=== PATIENT | female | born 1990 | race Caucasian/White ===

== ENCOUNTER 2020-12-30 09:07 | Inpatient (IN) | payer BC ==
[2020-12-30] MEDS ORDERED: Citric Acid/Sodium Citrate Solution 30 ML Cup PO ONE (09:09)
[2020-12-30] MEDS ORDERED: Metoclopramide 10 MG/2 ML SDV IVPUSH ONE (09:09)
[2020-12-30] MEDS ORDERED: Sodium Chloride 0.9% 10 ML Syringe FLUSH PRN (09:09)
[2020-12-30] MEDS ORDERED: Oxytocin/Lactated Ringers 10 UNIT/1,000 ML BAG IV SCH (09:15)
[2020-12-30] MEDS ORDERED: Lactated Ringers 1,000 ML IV SCH (09:15)
[2020-12-30] MEDS ORDERED: ceFAZolin 2 GM in Premix Bag 1 BAG IV ONE (09:30)
--- NOTE | 2020-12-30 09:31 | PCM.LDHP ---
L&D History of Present Illness - General Date of Service: 12/30/20 Admit Problem/Dx: Patient Status Order with Admit Dx/Problem 12/30/20 09:09 Patient Status [ADT] Routine Admission Diagnosis/Problem Admission Diagnosis/Problem Rupture of membranes with clear amniotic fluid Source of Information: Patient History Limitations: Reports: No Limitations - History of Present Illness Introduction:: Patient is a 30 y/o at 38 6/7 wks who presents for concerns of SROM. Occurred about 1.5 hours prior to presentation. Mild contractions since then. 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 (Approximate): - Past Surgical History HEENT Surgical History: Reports: Other (See Below) (Septoplasty) Social & Family History - Tobacco Use Tobacco Use Status *Q: Never Tobacco User - Alcohol Use Alcohol Use History: No - Recreational Drug Use Recreational Drug Use: No H&P Review of Systems - Review of Systems: Review Of Systems: See Below General: Reports: No Symptoms Pulmonary: Reports: No Symptoms Cardiovascular: Reports: No Symptoms Gastrointestinal: Reports: No Symptoms Genitourinary: Reports: No Symptoms Musculoskeletal: Reports: No Symptoms Psychiatric: Reports: No Symptoms Neurological: Reports: No Symptoms L&D Exam - Exam Exam: See Below - OB Specific Contraction Intensity: Irritability Movement: Active Heart Tones: Present Heart Tones per Min: 145 Heart Rate (FHR) Variability: Moderate (6-25 bmp) Presentation: Breech - Exam General: Alert, Oriented, Cooperative Lungs: Clear to Auscultation, Normal Respiratory Effort Cardiovascular: Regular Rate, Regular Rhythm GI/Abdominal Exam: Soft, Non-Tender Genitourinary: Other (grossly ruptured ) Extremities: Normal Inspection Skin: Warm, Dry, Intact - Problem List (1) 38 weeks gestation of SNOMED Code(s): 42017390 ICD Code: Z3A.38 - 38 WEEKS GESTATION OF Status: Acute Current Visit: Yes (2) Breech presentation SNOMED Code(s): 5529229 ICD Code: O32.1XX0 - MATERNAL CARE FOR BREECH PRESENTATION, UNSP Status: Acute Current Visit: Yes Qualifiers: Fetus number: fetus 1 of multiple gestation Qualified Code(s): O32.1XX1 - Maternal care for breech presentation, fetus 1 (3) Spontaneous rupture of membranes SNOMED Code(s): 441490111 ICD Code: QNX7052 - Status: Acute Current Visit: Yes Problem List Initiated/Reviewed/Updated: Yes Orders Last 24hrs: Active Orders 24 hr Category Date Time Status Patient Status [ADT] Routine ADT 12/30/20 09:09 Active Communication Order [RC] ROUTINE Care 12/30/20 09:09 Active Heart Tones [RC] PER UNIT ROUTINE Care 12/30/20 09:09 Active Non Stress Test [RC] PER UNIT ROUTINE Care 12/30/20 09:09 Active Peripheral IV Care [RC] . DIRECTED Care 12/30/20 09:10 Active Procedure Site Prep Instruct [RC] ASDIRECTED Care 12/30/20 09:09 Active Verify Patient Consent Obtain [RC] PER UNIT ROUTINE Care 12/30/20 09:09 Active Vital Signs [RC] PFP Care 12/30/20 09:09 Active CBC W/O DIFF,HEMOGRAM [HEME] Stat Lab 12/30/20 09:09 Ordered CORONAVIRUS COVID-19 ALBINO [MOLEC] Stat Lab 12/30/20 09:20 Received HEP C VIRUS AB [REF] Stat Lab 12/30/20 09:09 Ordered RAPID PLASMA REAGIN,RPR [CHEM] Routine Lab 12/30/20 09:09 Ordered TYPE AND SCREEN [BBK] Routine Lab 12/30/20 09:09 Ordered Azithromycin [Zithromax] 500 mg Med 12/30/20 09:09 Pending Sodium Chloride 0.9% [Normal Saline (AdvBag)] 250 ml IV ONETIME Citric Acid/Sodium Citrate [Bicitra Solution] Med 12/30/20 09:09 Once 30 ml PO ONETIME ONE Lactated Ringers [Ringers, Lactated] 1,000 ml Med 12/30/20 09:15 Pending IV ASDIRECTED Metoclopramide [Reglan] Med 12/30/20 09:09 Once 10 mg IVPUSH ONETIME ONE Oxytocin/Lactated Ringers [Pitocin in LR 10 Units/1,000 Med 12/30/20 09:15 Ordered ML] 10 unit in 1,000 ml IV ASDIRECTED Sodium Chloride 0.9% [Saline Flush] Med 12/30/20 09:09 Ordered 10 ml FLUSH ASDIRECTED PRN ceFAZolin [Ancef 2 GM/50 ML] 2 gm Med 12/30/20 09:09 Ordered Premix Bag 1 bag IV ONETIME Peripheral IV Insertion Adult [OM.PC] Routine Oth 12/30/20 09:09 Ordered Schedule Procedure [COMM] Per Unit Routine Oth 12/30/20 09:09 Ordered Resuscitation Status Routine Resus Stat 12/30/20 09:09 Ordered Medication Orders Citric Acid/Sodium Citrate (Citric Acid/Sodium Citrate Solution 30 Ml Cup) 30 ml PO ONETIME ONE Stop: 12/30/20 09:10 Cefazolin Sodium/Dextrose 2 gm (/ Premix) 50 mls @ 100 mls/hr IV ONETIME ONE Stop: 12/30/20 09:38 Oxytocin/Lactated Ringer's (Pitocin In Lr 10 Units/1,000 Ml) 10 unit in 1,000 mls @ 100 mls/hr IV ASDIRECTED JONNIE; Protocol Azithromycin 500 mg/ Sodium (Chloride) 250 mls @ 250 mls/hr IV ONETIME ONE Stop: 12/30/20 10:08 Lactated Ringer's (Ringers, Lactated) 1,000 mls @ 125 mls/hr IV ASDIRECTED JONNIE Metoclopramide HCl (Metoclopramide 10 Mg/2 Ml Sdv) 10 mg IVPUSH ONETIME ONE Stop: 12/30/20 09:10 Sodium Chloride (Sodium Chloride 0.9% 10 Ml Syringe) 10 ml FLUSH ASDIRECTED PRN PRN Reason: Keep Vein Open Assessment/Plan Comment:: * Labs to be done * Azithromycin and Ancef for surgical prophylaxis * Consent reviewed and signed * Peds and Anesthesia to be made aware of
--- NOTE | 2020-12-30 09:33 | PCM.OPNOTE ---
- General Post-Op/Procedure Note Date of Surgery/Procedure: 12/30/20 Operative Procedure(s): Primary low transverse Findings: Baby girl in breech presentation. Weight of 7 lbs 9 oz. APGARS of 9 & 9. Normal appearance of the uterus, fallopian tubes, and ovaries. Pre Op Diagnosis: 38 6/7 weeks. Breech. 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 Placenta discarded Fluid Replacement, Intraop: 1,500 Output, Urine Amount: 425 EBL in mLs: 800 Complications: None Condition: Good Free Text/Narrative:: The risks, benefits, indications, potential complications, and alternatives were explained to the patient and informed consent obtained. After induction of anesthesia, the patient was placed in a supine position and then draped and prepped in the usual sterile manner. A Pfannenstiel incision was made and carried down through the subcutaneous tissue to the fascia. Fascial incision was made and extended transversely. The fascia was from the underlying rectus tissue superiorly and inferiorly. The peritoneum was identified and entered. Peritoneal incision was extended longitudinally. The utero-vesical peritoneal reflection was incised transversely and the bladder flap was bluntly freed from the lower uterine segment. A low transverse uterine incision was made sharply with a scalpel and extended bluntly in a cephalocaudad direction. A baby girl was delivered from a breech presentation with standard maneuvers with APGARS as above. After the umbilical cord was clamped and cut cord blood was obtained for evaluation. The placenta was removed intact and appeared normal. The uterus was exteriorized and cleared of clots. The uterine outline, tubes and ovaries appeared normal. The uterine incision was closed with running locked sutures of 0 Vicryl. Hemostasis was obtained with a second imbricating layer of 0 Vicryl. The uterus was then placed back into the abdomen. The infracolic gutters were cleared of blood clots. The fascia was then reapproximated with running sutures of 0 Vicryl. The subcutaneous tissue was irrigated with sterile warm normal saline, hemostasis obtained with cautery. This layer was also closed with a running 0 Vicryl. The skin was reapproximated with running Subcuticular 4-0 Monocryl sutures. Instrument, sponge, and needle counts were correct prior the abdominal closure and at the conclusion of the case.
[2020-12-30] MEDS ORDERED: Ondansetron 4 MG/2 ML SDV ONE (09:50)
[2020-12-30] MEDS ORDERED: ceFAZolin 1 GM Vial ONE (09:50)
[2020-12-30] MEDS ORDERED: Lactated Ringers 2,000 ML ONE (09:50)
[2020-12-30] MEDS ORDERED: Oxytocin 10 Units/1 ML SDV ONE (09:50)
[2020-12-30] MEDS ORDERED: Ketorolac 30 MG/ML SDV ONE (09:50)
[2020-12-30] MEDS ORDERED: Morphine PF 10 MG/10 ML SDV ONE (09:51)
[2020-12-30] MEDS ORDERED: Azithromycin 500 MG in Sodium Chloride 0.9% 250 ML IV ONE (10:00)
--- NOTE | 2020-12-30 10:16 | PCM.PREANE ---
Preanesthetic Assessment - Procedure Proposed Procedure: cssection - Anesthesia/Transfusion/Family Hx Anesthesia History: Prior Anesthesia Without Reaction Family History of Anesthesia Reaction: No Transfusion History: No Prior Transfusion(s) - Review of Systems General: No Symptoms Pulmonary: No Symptoms Cardiovascular: No Symptoms Gastrointestinal: Abdominal Pain (contractions) Neurological: No Symptoms Other: Reports: None - Physical Assessment NPO Status Date: 12/30/20 NPO Status Time: 07:40 (cereal milk) Vital Signs: Last Vital Signs Temp 97.5 F 12/30/20 09:19 Pulse 96 12/30/20 09:19 Resp 16 12/30/20 09:19 BP 127/94 H 12/30/20 09:19 Pulse Ox 97 12/30/20 09:19 Height: 5 ft 3 in Weight: 73.391 kg ASA Class: 2 Mental Status: Alert & Oriented x3 Airway Class: Mallampati = 1 Dentition: Reports: Normal Dentition Thyro-Mental Finger Breadths: 3 Mouth Opening Finger Breadths: 3 ROM/Head Extension: Full Lungs: Clear to Auscultation, Normal Respiratory Effort Cardiovascular: Regular Rate, Regular Rhythm - Lab Values: Laboratory Last Values WBC 10.88 K/mm3 (3.98-10.04) H 12/30/20 09:35 RBC 4.20 M/mm3 (3.98-5.22) 12/30/20 09:35 Hgb 12.9 gm/dl (11.2-15.7) 12/30/20 09:35 Hct 38.3 % (34.1-44.9) 12/30/20 09:35 MCV 91.2 fl (79.4-94.8) 12/30/20 09:35 MCH 30.7 pg (25.6-32.2) 12/30/20 09:35 MCHC 33.7 g/dl (32.2-35.5) 12/30/20 09:35 RDW Std Deviation 40.7 fL (36.4-46.3) 12/30/20 09:35 Plt Count 252 K/mm3 (182-369) 12/30/20 09:35 MPV 10.9 fl (9.4-12.3) 12/30/20 09:35 - Allergies Allergies/Adverse Reactions: Allergies Allergy/AdvReac Type Severity Reaction Status Date / Time No Known Allergies Allergy Verified 12/30/20 09:31 - Blood Blood Available: No - Acknowledgements Anesthesia Type Planned: Spinal Pt an Appropriate Candidate for the Planned Anesthesia: Yes Alternatives and Risks of Anesthesia Discussed w Pt/Guardian: Yes Pt/Guardian Understands and Agrees with Anesthesia Plan: Yes PreAnesthesia Questionnaire HEENT History: Reports: None Cardiovascular History: Reports: None Respiratory History: Reports: None Gastrointestinal History: Reports: None 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: : 1 Para: 0 Psychiatric History: Reports: None Endocrine/Metabolic History: Reports: None Oncologic (Cancer) History: Reports: None - Past Surgical History HEENT Surgical History: Reports: Naso-Sinus Surgery - SUBSTANCE USE Tobacco Use Status *Q: Never Tobacco User Tobacco Use Within Last Twelve Months: No Second Hand Smoke Exposure: No Days Per Week of Alcohol Use: 0 Recreational Drug Use History: No - HOME MEDS Home Medications: Home Meds Vits #93/Iron Fum/FA [ Formula Tablet] 1 tab PO DAILY 12/30/20 [History] - CURRENT (IN HOUSE) MEDS Current Meds: Current Medications Oxytocin/Lactated Ringer's (Pitocin In Lr 10 Units/1,000 Ml) 10 unit in 1,000 mls @ 100 mls/hr IV ASDIRECTED JONNIE; Protocol Azithromycin 500 mg/ Sodium (Chloride) 250 mls @ 250 mls/hr IV ONETIME ONE Stop: 12/30/20 10:59 Last Admin: 12/30/20 09:56 Dose: 250 mls/hr Documented by: Lactated Ringer's (Ringers, Lactated) 1,000 mls @ 125 mls/hr IV ASDIRECTED JONNIE Last Admin: 12/30/20 09:43 Dose: 500 mls/hr Documented by: Sodium Chloride (Sodium Chloride 0.9% 10 Ml Syringe) 10 ml FLUSH ASDIRECTED PRN PRN Reason: Keep Vein Open Discontinued Medications Cefazolin Sodium (Cefazolin 1 Gm Vial) Confirm Administered Dose 2 gm .ROUTE .STK-MED ONE Stop: 12/30/20 09:51 Citric Acid/Sodium Citrate (Citric Acid/Sodium Citrate Solution 30 Ml Cup) 30 ml PO ONETIME ONE Stop: 12/30/20 09:10 Last Admin: 12/30/20 10:00 Dose: 30 ml Documented by: Cefazolin Sodium/Dextrose 2 gm (/ Premix) 50 mls @ 100 mls/hr IV ONETIME ONE Stop: 12/30/20 09:59 Lactated Ringer's (Ringers, Lactated) Confirm Administered Dose 2,000 mls @ as directed .ROUTE .STK-MED ONE Stop: 12/30/20 09:51 Ketorolac Tromethamine (Ketorolac 30 Mg/Ml Sdv) Confirm Administered Dose 30 mg .ROUTE .STK-MED ONE Stop: 12/30/20 09:51 Metoclopramide HCl (Metoclopramide 10 Mg/2 Ml Sdv) 10 mg IVPUSH ONETIME ONE Stop: 12/30/20 09:10 Last Admin: 12/30/20 10:00 Dose: 10 mg Documented by: Morphine Sulfate (Morphine Pf 10 Mg/10 Ml Sdv) Confirm Administered Dose 10 mg .ROUTE .STK-MED ONE Stop: 12/30/20 09:52 Ondansetron HCl (Ondansetron 4 Mg/2 Ml Sdv) Confirm Administered Dose 4 mg .ROUTE .STK-MED ONE Stop: 12/30/20 09:51 Oxytocin (Oxytocin 10 Units/1 Ml Sdv) Confirm Administered Dose 10 unit .ROUTE .STK-MED ONE Stop: 12/30/20 09:51
[2020-12-30] MEDS ORDERED: Meperidine 50 MG/ML Vial IVPUSH PRN (10:36)
[2020-12-30] MEDS ORDERED: diphenhydrAMINE 50 MG/ML SDV IVPUSH PRN ×2 (10:36→12:47)
[2020-12-30] MEDS ORDERED: fentaNYL 100 MCG/2 ML SDV IVPUSH PRN (10:36)
[2020-12-30] MEDS ORDERED: Ondansetron 4 MG/2 ML SDV IVPUSH PRN (10:36)
--- NOTE | 2020-12-30 11:21 | PCM.POSTAN ---
POST ANESTHESIA ASSESSMENT - MENTAL STATUS Mental Status: Alert, Oriented - VITAL SIGNS Vital Signs: Last Vital Signs Temp 97.5 F 12/30/20 09:19 Pulse 96 12/30/20 09:19 Resp 16 12/30/20 09:19 BP 127/94 H 12/30/20 09:19 Pulse Ox 97 12/30/20 09:19 1116 78 10 97.5 100% 109/65 - RESPIRATORY Respiratory Status: Respiratory Rate WNL, Airway Patent, O2 Saturation Stable, Supplemental Oxygen - CARDIOVASCULAR CV Status: Pulse Rate WNL, Blood Pressure Stable - GASTROINTESTINAL GI Status: No Symptoms - PAIN Pain Score: 0 - POST OP HYDRATION Hydration Status: Adequate & Stable
[2020-12-30] MEDS ORDERED: Naloxone 0.4 MG/ML SDV IVPUSH PRN (12:47)
[2020-12-30] MEDS ORDERED: Dextrose 5%-Lactated Ringers 1,000 ML IV SCH (12:47)
[2020-12-30] MEDS: Ketorolac 30 MG/ML SDV IVPUSH SCH ×2 (17:11→23:16)
[2020-12-31] MEDS: Ketorolac 30 MG/ML SDV IVPUSH SCH (05:07)
--- NOTE | 2020-12-31 07:13 | PCM.PNPP ---
- General Info Date of Service: 12/31/20 Functional Status: Reports: Pain Controlled, Tolerating Diet, Ambulating, Urinating - Review of Systems General: Reports: No Symptoms Pulmonary: Reports: No Symptoms Cardiovascular: Reports: No Symptoms Gastrointestinal: Reports: Abdominal Pain Genitourinary: Reports: No Symptoms Musculoskeletal: Reports: No Symptoms Neurological: Reports: No Symptoms - Patient Data Vital Signs - Most Recent: Last Vital Signs Temp 36.6 C 12/31/20 06:30 Pulse 85 12/31/20 06:30 Resp 14 12/31/20 06:30 BP 114/66 12/31/20 06:30 Pulse Ox 97 12/31/20 06:30 Weight - Most Recent: 73.391 kg I&O - Last 24 Hours: Intake & Output 12/30/20 12/31/20 12/31/20 22:59 06:59 14:59 Intake Total 1500 500 Output Total 1450 3550 Balance 50 -3050 Lab Results - Last 24 Hours: Laboratory Results - last 24 hr 12/30/20 12/30/20 12/30/20 Range/Units 09:20 09:35 09:35 WBC (3.98-10.04) K/mm3 RBC (3.98-5.22) M/mm3 Hgb (11.2-15.7) gm/dl Hct (34.1-44.9) % MCV (79.4-94.8) fl MCH (25.6-32.2) pg MCHC (32.2-35.5) g/dl RDW Std Deviation (36.4-46.3) fL Plt Count (182-369) K/mm3 MPV (9.4-12.3) fl RPR Non-reactive (NONREACTIVE) SARS-CoV-2 RNA (ALBINO) Negative (NEGATIVE) Blood Type O POSITIVE Gel Antibody Screen Negative 12/30/20 12/31/20 Range/Units 09:35 05:50 WBC 10.88 H 12.65 H (3.98-10.04) K/mm3 RBC 4.20 3.42 L (3.98-5.22) M/mm3 Hgb 12.9 10.7 L D (11.2-15.7) gm/dl Hct 38.3 32.0 L (34.1-44.9) % MCV 91.2 93.6 (79.4-94.8) fl MCH 30.7 31.3 (25.6-32.2) pg MCHC 33.7 33.4 (32.2-35.5) g/dl RDW Std Deviation 40.7 40.9 (36.4-46.3) fL Plt Count 252 205 (182-369) K/mm3 MPV 10.9 10.9 (9.4-12.3) fl RPR (NONREACTIVE) SARS-CoV-2 RNA (ALBINO) (NEGATIVE) Blood Type Gel Antibody Screen Med Orders - Current: Current Medications Diphenhydramine HCl (Diphenhydramine 50 Mg/Ml Sdv) 25 mg IVPUSH Q6H PRN PRN Reason: Itching or Nausea Docusate Sodium (Docusate Sodium 100 Mg Cap) 100 mg PO Q12H PRN PRN Reason: Constipation Ibuprofen (Ibuprofen 600 Mg Tab) 600 mg PO Q6H PRN PRN Reason: mild pain or fever Naloxone HCl (Naloxone 0.4 Mg/Ml Sdv) 0.1 mg IVPUSH SEECOMMENT PRN PRN Reason: Respiratory Depression Oxycodone/Acetaminophen (Acetaminophen/Oxycodone 325-5 Mg Tab) 1 tab PO Q4H PRN PRN Reason: Pain (moderate 4-6) Oxycodone/Acetaminophen (Acetaminophen/Oxycodone 325-5 Mg Tab) 2 tab PO Q4H PRN PRN Reason: Pain (severe 7-10) Discontinued Medications Cefazolin Sodium (Cefazolin 1 Gm Vial) Confirm Administered Dose 2 gm .ROUTE .STK-MED ONE Stop: 12/30/20 09:51 Citric Acid/Sodium Citrate (Citric Acid/Sodium Citrate Solution 30 Ml Cup) 30 ml PO ONETIME ONE Stop: 12/30/20 09:10 Last Admin: 12/30/20 10:00 Dose: 30 ml Documented by: Diphenhydramine HCl (Diphenhydramine 50 Mg/Ml Sdv) 25 mg IVPUSH Q6H PRN PRN Reason: Pruritis Stop: 12/30/20 13:00 Fentanyl (Fentanyl 100 Mcg/2 Ml Sdv) 50 mcg IVPUSH Q5M PRN PRN Reason: Pain Stop: 12/30/20 13:00 Cefazolin Sodium/Dextrose 2 gm (/ Premix) 50 mls @ 100 mls/hr IV ONETIME ONE Stop: 12/30/20 09:59 Last Admin: 12/30/20 13:28 Dose: Not Given Documented by: Oxytocin/Lactated Ringer's (Pitocin In Lr 10 Units/1,000 Ml) 10 unit in 1,000 mls @ 100 mls/hr IV ASDIRECTED [facility]; Protocol Azithromycin 500 mg/ Sodium (Chloride) 250 mls @ 250 mls/hr IV ONETIME ONE Stop: 12/30/20 10:59 Last Admin: 12/30/20 09:56 Dose: 250 mls/hr Documented by: Lactated Ringer's (Ringers, Lactated) 1,000 mls @ 125 mls/hr IV ASDIRECTED [facility] Last Admin: 12/30/20 09:43 Dose: 500 mls/hr Documented by: Lactated Ringer's (Ringers, Lactated) Confirm Administered Dose 2,000 mls @ as d irected .ROUTE .STK-MED ONE Stop: 12/30/20 09:51 Dextrose/Lactated Ringer's (Dextrose 5%-Lactated Ringers) 1,000 mls @ 125 mls/hr IV ASDIRECTED [facility] Stop: 12/30/20 20:46 Last Admin: 12/30/20 13:27 Dose: 125 mls/hr Documented by: Ketorolac Tromethamine (Ketorolac 30 Mg/Ml Sdv) Confirm Administered Dose 30 mg .ROUTE .STK-MED ONE Stop: 12/30/20 09:51 Ketorolac Tromethamine (Ketorolac 30 Mg/Ml Sdv) 30 mg IVPUSH Q6H [facility] Stop: 12/31/20 05:01 Last Admin: 12/31/20 05:07 Dose: 30 mg Documented by: Meperidine HCl (Meperidine 50 Mg/Ml Vial) 25 mg IVPUSH ONETIME PRN PRN Reason: Shivering Stop: 12/30/20 13:00 Metoclopramide HCl (Metoclopramide 10 Mg/2 Ml Sdv) 10 mg IVPUSH ONETIME ONE Stop: 12/30/20 09:10 Last Admin: 12/30/20 10:00 Dose: 10 mg Documented by: Morphine Sulfate (Morphine Pf 10 Mg/10 Ml Sdv) Confirm Administered Dose 10 mg .ROUTE .STK-MED ONE Stop: 12/30/20 09:52 Ondansetron HCl (Ondansetron 4 Mg/2 Ml Sdv) Confirm Administered Dose 4 mg .ROUTE .STK-MED ONE Stop: 12/30/20 09:51 Ondansetron HCl (Ondansetron 4 Mg/2 Ml Sdv) 4 mg IVPUSH ONETIME PRN PRN Reason: Nausea/Vomiting Stop: 12/30/20 13:00 Oxytocin (Oxytocin 10 Units/1 Ml Sdv) Confirm Administered Dose 10 unit .ROUTE .STK-MED ONE Stop: 12/30/20 09:51 Sodium Chloride (Sodium Chloride 0.9% 10 Ml Syringe) 10 ml FLUSH ASDIRECTED PRN PRN Reason: Keep Vein Open - Interaction Disposition, : [place] to Nursery Infant Feeding: Attempted ; Nursed Fair/Poor Support Person: - Recovery Exam Fundal Tone: Firm Fundal Level: 1 Fingerbreadths Below Umbilicus Fundal Placement: Midline Lochia Amount: Scant, Small Lochia Color: Rubra/Red Perineum Description: Intact, Minimal Bruising/Swelling Episiotomy/Laceration: None Bladder Status: Indwelling Catheter in Place Urinary Elimination: Indwelling Catheter - Exam General: Alert, Oriented, Cooperative Lungs: Clear to Auscultation, Normal Respiratory Effort Cardiovascular: Regular Rate, Regular Rhythm GI/Abdominal Exam: Soft, Tender (appropriate ) Extremities: Normal Inspection Skin: Warm, Dry, Intact Wound/Incisions: Healing Well, No Drainage - Problem List & Annotations (1) 38 weeks gestation of SNOMED Code(s): 01169505 Code(s): Z3A.38 - 38 WEEKS GESTATION OF Status: Acute Current Visit: Yes (2) Breech presentation SNOMED Code(s): 5674476 Code(s): O32.1XX0 - MATERNAL CARE FOR BREECH PRESENTATION, UNSP Status: Acute Current Visit: Yes Qualifiers: Fetus number: fetus 1 of multiple gestation Qualified Code(s): O32.1XX1 - Maternal care for breech presentation, fetus 1 (3) Spontaneous rupture of membranes SNOMED Code(s): 840062228 Code(s): XBV2093 - Status: Acute Current Visit: Yes (4) S/P primary low transverse SNOMED Code(s): 022577944, 67317706, 088869817, 347035613, 888447381 Code(s): Z98.891 - HISTORY OF UTERINE SCAR FROM PREVIOUS SURGERY Status: Acute Current Visit: Yes - Problem List Review Problem List Initiated/Reviewed/Updated: Yes - My Orders Last 24 Hours: My Active Orders 12/30/20 09:09 Resuscitation Status Routine 12/30/20 09:35 HEP C VIRUS AB [REF] Stat 12/30/20 Lunch Regular Diet [DIET] 12/30/20 12:47 Acetaminophen/oxyCODONE [Percocet 325-5 MG] 1 tab PO Q4H PRN Acetaminophen/oxyCODONE [Percocet 325-5 MG] 2 tab PO Q4H PRN Docusate Sodium [Colace] 100 mg PO Q12H PRN Naloxone [Narcan] 0.1 mg IVPUSH SEECOMMENT PRN diphenhydrAMINE [Benadryl] 25 mg IVPUSH Q6H PRN 12/30/20 12:47 Activity as Tolerated [RC] .Routine Antiembolic Devices [RC] PER UNIT ROUTINE Communication Order [RC] PER UNIT ROUTINE Intake and Output [RC] Q4HR May Shower [RC] PER UNIT ROUTINE Notify Provider Intake and Out [RC] ASDIRECTED RT Incentive Spirometry [RC] Q2HWA Assess Lochia [WOMSER] Per Unit Routine Assess Uterine Involution [WOMSER] Per Unit Routine Breast Pump [WOMSER] Per Unit Routine Heat Therapy [OM.PC] Per Unit Routine Peripheral IV Discontinue [OM.PC] Routine Sequential Compression Device [OM.PC] Per Unit Routine 12/31/20 11:00 Ibuprofen [Motrin] 600 mg PO Q6H PRN - Assessment Assessment:: POD#1 - Plan Plan:: * Routine cares * Breast feeding * Discharge home in 1-2 days
--- NOTE | 2020-12-31 07:14 | PCM48HPAN ---
Post Anesthesia Note - EVALUATION WITHIN 48HRS OF ANESTHETIC Vital Signs in Normal Range: Yes Patient Participated in Evaluation: Yes Respiratory Function Stable: Yes Airway Patent: Yes Cardiovascular Function Stable: Yes Hydration Status Stable: Yes Pain Control Satisfactory: Yes Nausea and Vomiting Control Satisfactory: Yes Mental Status Recovered: Yes Vital Signs: Last Vital Signs Temp 36.6 C 12/31/20 06:30 Pulse 85 12/31/20 06:30 Resp 14 12/31/20 06:30 BP 114/66 12/31/20 06:30 Pulse Ox 97 12/31/20 06:30
[2020-12-31] MEDS: Docusate Sodium 100 MG Cap PO PRN ×2 (08:03→19:55)
[2020-12-31] MEDS: Acetaminophen/oxyCODONE 325-5 MG Tab PO PRN ×3 (08:04→19:56)
[2020-12-31] MEDS: Ibuprofen 600 MG Tab PO PRN ×2 (12:07→17:41)
[2021-01-01] MEDS: Ibuprofen 600 MG Tab PO PRN ×2 (01:44→08:33)
[2021-01-01] MEDS: Acetaminophen/oxyCODONE 325-5 MG Tab PO PRN ×2 (04:25→11:55)
--- NOTE | 2021-01-01 06:03 | PCM.DCSUM1 ---
Discharge Summary - Discharge Data Discharge Date: 01/01/21 Discharge Disposition: Home, Self-Care 01 Condition: Good - Referral to Home Health Primary Care Physician: Jase Moore MD - Discharge Diagnosis/Problem(s) (1) 38 weeks gestation of SNOMED Code(s): 91081499 ICD Code: Z3A.38 - 38 WEEKS GESTATION OF Status: Acute Current Visit: Yes (2) Breech presentation SNOMED Code(s): 4913570 ICD Code: O32.1XX0 - MATERNAL CARE FOR BREECH PRESENTATION, UNSP Status: Acute Current Visit: Yes Qualifiers: Fetus number: fetus 1 of multiple gestation Qualified Code(s): O32.1XX1 - Maternal care for breech presentation, fetus 1 (3) Spontaneous rupture of membranes SNOMED Code(s): 368240801 ICD Code: [id number] - Status: Acute Current Visit: Yes (4) S/P primary low transverse SNOMED Code(s): 590674498, 84673149, 798661543, 418419900, 463863592 ICD Code: Z98.891 - HISTORY OF UTERINE SCAR FROM PREVIOUS SURGERY Status: Acute Current Visit: Yes - Patient Summary/Data Operative Procedure(s) Performed: Primary low transverse Complications: None Consults: None Recommended Follow-up Testing/Procedures: Follow up in 3 weeks for check Hospital Course: 30 y/o at 38 6/7 wks who presented with SROM with breech presentation. Taken for PLTCS. This was uncomplicated. See delivery note. did well and was discharged home on POD#2 - Patient Instructions Diet: Regular Diet as Tolerated Activity: No Lifting Over 10 Pounds (10-15 pounds ) Activity, Other: Pelvic rest for 6 weeks Driving: Do Not Drive (While taking pain medication) Showering/Bathing: May Shower, No Tub Bathing/Swimming Wound/Incision Care: Keep Operative Site/Wound Site Clean and Dry Notify Provider of: Fever, Increased Pain, Swelling and Redness, Drainage, Nausea and/or Vomiting - Discharge Plan *PRESCRIPTION DRUG MONITORING PROGRAM REVIEWED*: No *COPY OF PRESCRIPTION DRUG MONITORING REPORT IN PATIENT OLGA: No Prescriptions/Med Rec: Acetaminophen/oxyCODONE [Percocet 325-5 MG] 1 - 2 tab PO Q4H PRN #25 tablet PRN Reason: Pain (Severe 7-10) Home Medications: Home Meds Vits #93/Iron Fum/FA [ Formula Tablet] 1 tab PO DAILY 12/30/20 [History] Acetaminophen/oxyCODONE [Percocet 325-5 MG] 1 - 2 tab PO Q4H PRN #25 tablet 01/01/21 [Rx] Docusate Sodium [Colace] 100 mg PO Q12H PRN cap 01/01/21 [Rx] Ibuprofen [Motrin] 600 mg PO Q6H PRN tablet 01/01/21 [Rx] Patient Handouts: Mastitis, and Self-Care, Breast Engorgement Referrals: Jase Moore MD [Primary Care Provider] - (2-3 weeks for check ) - Discharge Summary/Plan Comment DC Time >30 min.: No - Patient Data Vitals - Most Recent: Last Vital Signs Temp 36.9 C 01/01/21 02:29 Pulse 80 01/01/21 02:29 Resp 14 01/01/21 02:29 BP 122/80 01/01/21 02:29 Pulse Ox 97 12/31/20 20:45 Weight - Most Recent: 73.391 kg I&O - Last 24 hours: Intake & Output 12/31/20 12/31/20 01/01/21 14:59 22:59 06:59 Intake Total 260 Output Total 1650 Balance -1390 Lab Results - Last 24 hrs: Laboratory Results - last 24 hr 12/31/20 Range/Units 05:50 WBC 12.65 H (3.98-10.04) K/mm3 RBC 3.42 L (3.98-5.22) M/mm3 Hgb 10.7 L D (11.2-15.7) gm/dl Hct 32.0 L (34.1-44.9) % MCV 93.6 (79.4-94.8) fl MCH 31.3 (25.6-32.2) pg MCHC 33.4 (32.2-35.5) g/dl RDW Std Deviation 40.9 (36.4-46.3) fL Plt Count 205 (182-369) K/mm3 MPV 10.9 (9.4-12.3) fl Med Orders - Current: Current Medications Diphenhydramine HCl (Diphenhydramine 50 Mg/Ml Sdv) 25 mg IVPUSH Q6H PRN PRN Reason: Itching or Nausea Docusate Sodium (Docusate Sodium 100 Mg Cap) 100 mg PO Q12H PRN PRN Reason: Constipation Last Admin: 12/31/20 19:55 Dose: 100 mg Documented by: Ibuprofen (Ibuprofen 600 Mg Tab) 600 mg PO Q6H PRN PRN Reason: mild pain or fever Last Admin: 01/01/21 01:44 Dose: 600 mg Documented by: Naloxone HCl (Naloxone 0.4 Mg/Ml Sdv) 0.1 mg IVPUSH SEECOMMENT PRN PRN Reason: Respiratory Depression Oxycodone/Acetaminophen (Acetaminophen/Oxycodone 325-5 Mg Tab) 1 tab PO Q4H PRN PRN Reason: Pain (moderate 4-6) Last Admin: 01/01/21 04:25 Dose: 1 tab Documented by: Oxycodone/Acetaminophen (Acetaminophen/Oxycodone 325-5 Mg Tab) 2 tab PO Q4H PRN PRN Reason: Pain (severe 7-10) Last Admin: 12/31/20 19:56 Dose: 2 tab Documented by: Discontinued Medications Cefazolin Sodium (Cefazolin 1 Gm Vial) Confirm Administered Dose 2 gm .ROUTE .STK-MED ONE Stop: 12/30/20 09:51 Citric Acid/Sodium Citrate (Citric Acid/Sodium Citrate Solution 30 Ml Cup) 30 ml PO ONETIME ONE Stop: 12/30/20 09:10 Last Admin: 12/30/20 10:00 Dose: 30 ml Documented by: Diphenhydramine HCl (Diphenhydramine 50 Mg/Ml Sdv) 25 mg IVPUSH Q6H PRN PRN Reason: Pruritis Stop: 12/30/20 13:00 Fentanyl (Fentanyl 100 Mcg/2 Ml Sdv) 50 mcg IVPUSH Q5M PRN PRN Reason: Pain Stop: 12/30/20 13:00 Cefazolin Sodium/Dextrose 2 gm (/ Premix) 50 mls @ 100 mls/hr IV ONETIME ONE Stop: 12/30/20 09:59 Last Admin: 12/30/20 13:28 Dose: Not Given Documented by: Oxytocin/Lactated Ringer's (Pitocin In Lr 10 Units/1,000 Ml) 10 unit in 1,000 mls @ 100 mls/hr IV ASDIRECTED [facility]; Protocol Azithromycin 500 mg/ Sodium (Chloride) 250 mls @ 250 mls/hr IV ONETIME ONE Stop: 12/30/20 10:59 Last Admin: 12/30/20 09:56 Dose: 250 mls/hr Documented by: Lactated Ringer's (Ringers, Lactated) 1,000 mls @ 125 mls/hr IV ASDIRECTED [facility] Last Admin: 12/30/20 09:43 Dose: 500 mls/hr Documented by: Lactated Ringer's (Ringers, Lactated) Confirm Administered Dose 2,000 mls @ as directed .ROUTE .STK-MED ONE Stop: 12/30/20 09:51 Dextrose/Lactated Ringer's (Dextrose 5%-Lactated Ringers) 1,000 mls @ 125 mls/hr IV ASDIRECTED [facility] Stop: 12/30/20 20:46 Last Admin: 12/30/20 13:27 Dose: 125 mls/hr Documented by: Ketorolac Tromethamine (Ketorolac 30 Mg/Ml Sdv) Confirm Administered Dose 30 mg .ROUTE .STK-MED ONE Stop: 12/30/20 09:51 Ketorolac Tromethamine (Ketorolac 30 Mg/Ml Sdv) 30 mg IVPUSH Q6H [facility] Stop: 12/31/20 05:01 Last Admin: 12/31/20 05:07 Dose: 30 mg Documented by: Meperidine HCl (Meperidine 50 Mg/Ml Vial) 25 mg IVPUSH ONETIME PRN PRN Reason: Shivering Stop: 12/30/20 13:00 Metoclopramide HCl (Metoclopramide 10 Mg/2 Ml Sdv) 10 mg IVPUSH ONETIME ONE Stop: 12/30/20 09:10 Last Admin: 12/30/20 10:00 Dose: 10 mg Documented by: Morphine Sulfate (Morphine Pf 10 Mg/10 Ml Sdv) Confirm Administered Dose 10 mg .ROUTE .STK-MED ONE Stop: 12/30/20 09:52 Ondansetron HCl (Ondansetron 4 Mg/2 Ml Sdv) Confirm Administered Dose 4 mg .ROUTE .STK-MED ONE Stop: 12/30/20 09:51 Ondansetron HCl (Ondansetron 4 Mg/2 Ml Sdv) 4 mg IVPUSH ONETIME PRN PRN Reason: Nausea/Vomiting Stop: 12/30/20 13:00 Oxytocin (Oxytocin 10 Units/1 Ml Sdv) Confirm Administered Dose 10 unit .ROUTE .STK-MED ONE Stop: 12/30/20 09:51 Sodium Chloride (Sodium Chloride 0.9% 10 Ml Syringe) 10 ml FLUSH ASDIRECTED PRN PRN Reason: Keep Vein Open
[2021-01-01] MEDS: Docusate Sodium 100 MG Cap PO PRN (08:33)
== END 2021-01-01 13:40 | disposition home or self-care (01) | DRG 540 ==
LOC: JD.OBCHECK 09:07 → JD.OB 09:09 → UNDODISIN 01-01 13:40
PROVIDERS: ADMIT Obstetrics & Gynecology; ATTEND Obstetrics & Gynecology
PROC: 10D00Z1 Extraction of Products of Conception, Low, Open Approach (ICD-10-PCS; principal; 2020-12-30)
DX: O32.1XX0 Maternal care for breech presentation, not applicable or unspecified (principal); Z3A.38 38 weeks gestation of pregnancy; Z37.0 Single live birth; Z20.822 Contact with and (suspected) exposure to COVID-19; Z79.899 Other long term (current) drug therapy
CPT/HCPCS: 01961; 36415; 59025; 85027; 86592; 86803; 86850; 86900; 86901; 94762; A9270-GY; J0456; J0690; J1885; J2270; J2405; J2590; J2765; J7050; J7120; J7121; U0002

== ENCOUNTER 2022-07-31 09:40 | Inpatient (IN) | payer OTHER ==
[~2022-07-31 09:40] MED LIST: Lidocaine 1% 10 ML MDV ONE
[2022-07-31] MEDS ORDERED: Nalbuphine HCl 10 MG/ 1ML Amp IVPUSH PRN (10:47)
[2022-07-31] MEDS ORDERED: Lidocaine 1% 50 ML MDV INJECT ONE (10:47)
[2022-07-31] MEDS ORDERED: Ondansetron 4 MG/2 ML SDV IVPUSH PRN (10:47)
[2022-07-31] MEDS: Lactated Ringers 1,000 ML IV SCH ×3 (10:58→20:19)
[2022-07-31] MEDS: Oxytocin/Lactated Ringers 10 UNIT/1,000 ML BAG IV SCH ×2 (10:58→23:24)
[2022-07-31] MEDS ORDERED: ePHEDrine 50 MG/ML SDV IVPUSH PRN (17:51)
[2022-07-31] MEDS ORDERED: Bupivacaine/fentaNYL/NS 100 ML Bag EPIDUR PRN (17:51)
[2022-07-31] MEDS ORDERED: fentaNYL 100 MCG/2 ML SDV EPIDUR PRN (17:51)
[2022-07-31] MEDS ORDERED: diphenhydrAMINE 50 MG/ML SDV IVPUSH PRN (17:51)
[2022-07-31] MEDS ORDERED: Misoprostol 200 MCG Tab PO STA (23:05)
[2022-07-31] MEDS ORDERED: ceFAZolin 2 GM in Sodium Chloride 0.9% 50 ML IV ONE (23:05)
[2022-07-31] MEDS ORDERED: Carboprost Tromethamine 250 MCG/1 ML Amp IM ONE (23:05)
[2022-07-31] MEDS ORDERED: Methylergonovine 0.2 MG/1 ML Amp IM STA (23:05)
[2022-07-31] MEDS ORDERED: Benzocaine/Menthol 20%-0.5% Spray 78 GM Cannister TOP PRN (23:53)
[2022-07-31] MEDS ORDERED: Docusate Sodium 100 MG Cap PO PRN (23:53)
[2022-07-31] MEDS ORDERED: Acetaminophen 325 MG Tab PO PRN (23:53)
[2022-07-31] MEDS ORDERED: Witch Hazel Medicated Pads 40/Jar TOP PRN (23:53)
[2022-08-01] MEDS: Ibuprofen 600 MG Tab PO PRN ×3 (01:07→19:52)
== END 2022-08-02 11:10 | disposition home or self-care (01) | DRG 807 ==
LOC: JD.OBCHECK 09:40 → JD.OB 09:48 → JD.OBCHECK 10:35 → JD.OB 10:35 → OBSVTOIN 23:13
PROVIDERS: ADMIT Obstetrics & Gynecology; ATTEND Obstetrics & Gynecology
PROC: 10E0XZZ Delivery of Products of Conception, External Approach (ICD-10-PCS; principal; 2022-07-31)
PROC: 0KQM0ZZ Repair Perineum Muscle, Open Approach (ICD-10-PCS; 2022-07-31)
PROC: 3E0R3BZ Introduction of Anesthetic Agent into Spinal Canal, Percutaneous Approach (ICD-10-PCS; 2022-07-31)
PROC: 10907ZC Drainage of Amniotic Fluid, Therapeutic from Products of Conception, Via Natural or Artificial Opening (ICD-10-PCS; 2022-07-31)
DX: O34.219 Maternal care for unspecified type scar from previous cesarean delivery (principal); Z37.0 Single live birth; O70.1 Second degree perineal laceration during delivery; Z3A.38 38 weeks gestation of pregnancy
CPT/HCPCS: 36415; 51702; 59025; 59409; 84112; 85027; 86592; 86850; 86900; 86901; A9270-GY; J0690; J2210; J2300; J2590; J3010; J7120